=== PATIENT | male | born 1930 | race Caucasian/White ===

== ENCOUNTER 2016-06-26 08:43 | Emergency (ER) | payer OTHER ==
[~2016-06-26] VITALS: Ht 182.9 cm; Wt 83.9 kg
[~2016-06-26 08:43] MED LIST: AMIO200T2 PO; ASPI-482 PO; ASPI81TA9 PO; CALC-530 PO; CALC600T4 PO; CARB1TAB2 PO; CELE200C PO; CIPR500T94 PO; CITA10TA8 PO; DOFE125C PO; DOXA2TAB PO; FERR325T31 PO; GABA-586 PO; MAGN400T22 PO; MAGN400T3 PO; METO25TA4 PO; METR500T PO; NITR0.4T6 SL; PANT40TA5 PO; PARO20TA3 PO; PRIM250T PO; RIVA10TA PO; SIMV40TA3 PO; WARF1TAB7 PO; WARF5TAB PO
[2016-06-26] MEDS ORDERED: 0.9 % SODIUM CHLORIDE 10 ML DISP.SYRIN. IV PRN (09:00)
--- NOTE | 2016-06-26 09:13 | PHYS DOC ---
Past Medical History Past Medical History: CAD, Depression, GERD, Hypertension, [place], Other Additional Past Medical Histor: TREMORS, PACEMAKER Past Surgical History: Knee Replacement, Pacemaker, Tonsillectomy, Other Additional Past Surgical Histo: CARDIAC STENTS, CATARACT, HERNIA X2 Alcohol Use: None Drug Use: None Adult General Chief Complaint Chief Complaint: FLU SYMPTOM HPI HPI Patient is a 85 year old male who presents emergency room today with complaint of nonproductive cough, generalized weakness and exertional dyspnea that began all over week ago. Patient states that he saw his primary care doctor who prescribed Tamiflu for him for "flulike symptoms". He denies fevers or chills. He denies exposure to influenza. Patient has a history of a previous heart attack. He has 3 stents. He has a history of atrial fibrillation with episodes of CHF in the past. He denies chest pain, palpitations, orthopnea or PND. He does report exertional dyspnea and a nonproductive cough. Patient states he is taking all of his routine medications as prescribed. He denies being on an anticoagulant. He denies hospitalization, foreign travel or antibiotic use within the past 60 days. He denies epigastric/abdominal pain, nausea/vomiting or diarrhea. Patient reports he receives his primary and cardiac care at [facility]. Review of Systems Review of Systems Constitutional: Denies fever or chills [] Eyes: Denies change in visual acuity, redness, or eye pain [] HENT: Denies nasal congestion or sore throat [] Respiratory: Denies cough or shortness of breath [] Cardiovascular: No additional information not addressed in HPI [] GI: Denies abdominal pain, nausea, vomiting, bloody stools or diarrhea [] : Denies dysuria or hematuria [] Musculoskeletal: Denies back pain or joint pain [] Integument: Denies rash or skin lesions [] Neurologic: Denies headache, focal weakness or sensory changes [] Endocrine: Denies polyuria or polydipsia [] Current Medications Current Medications Current Medications Medications (Trade) Dose Ordered Sig/Dasha Start Time Stop Time Status Last Admin Dose Admin Sodium Chloride (Normal Saline Flush) 10 ml QSHIFT PRN 06/26/16 09:00 Allergies Allergies Allergies Coded Allergies Type Severity Reaction Last Updated Verified No Known Drug Allergies 03/04/15 No Physical Exam Physical Exam Constitutional: Patient is lying in a high semi-Fowlers position no acute distress. HENT: Normocephalic, atraumatic, bilateral external ears normal, oropharynx moist, no oral exudates, nose normal. Eyes: PERRLA, EOMI, conjunctiva normal, no discharge. [] Neck: Normal range of motion, no tenderness, supple, no stridor. There is no JVD. Cardiovascular:Heart rate 80 with irregular rhythm, no murmur. PMI was not displaced laterally. Patient does not have swollen lower extremities. Lungs & Thorax: Decreased lung sounds bilaterally with poor inspiratory effort. Patient shows no evidence of respiratory distress or respiratory fatigue. Oxygen saturation is 97% on room air. Abdomen: Bowel sounds normal, soft, no tenderness, no masses, no pulsatile masses. [] Skin: Warm, dry, no erythema, no rash. [] Back: No tenderness, no CVA tenderness. [] Extremities: No tenderness, no cyanosis, no clubbing, ROM intact, no edema. Neurologic: Alert and oriented X 3, normal motor function, normal sensory function, no focal deficits noted. [] Psychologic: Affect normal, judgement normal, mood normal. [] Current Patient Data Vital Signs Vital Signs Date Time Temp Pulse Resp B/P Pulse Ox O2 Delivery O2 Flow Rate FiO2 06/26/16 09:03 98.0 91 24 136/76 97 Room Air 98.0 Lab Values Laboratory Tests Test 06/26/16 09:15 White Blood Count 10.3x10^3/uL (4.0-11.0) Red Blood Count 3.78x10^6/uL (4.30-5.70) L Hemoglobin 12.9g/dL (13.0-17.5) L Hematocrit 38.1% (39.0-53.0) L Mean Corpuscular Volume 101fL (79-100) H Mean Corpuscular Hemoglobin 34pg (25-35) Mean Corpuscular Hemoglobin Concent 34g/dL (31-37) Red Cell Distribution Width 13.7% (11.5-14.5) Platelet Count 153x10^3/uL (140-400) Neutrophils (%) (Auto) 79% (31-73) H Lymphocytes (%) (Auto) 10% (24-48) L Monocytes (%) (Auto) 9% (0-9) Eosinophils (%) (Auto) 1% (0-3) Basophils (%) (Auto) 1% (0-3) Neutrophils # (Auto) 8.1x10^3uL (1.8-7.7) H Lymphocytes # (Auto) 1.0x10^3/uL (1.0-4.8) Monocytes # (Auto) 1.0x10^3/uL (0.0-1.1) Eosinophils # (Auto) 0.1x10^3/uL (0.0-0.7) Basophils # (Auto) 0.1x10^3/uL (0.0-0.2) Prothrombin Time 13.5SEC (11.7-14.0) Prothrombin Time INR 1.1 (0.8-1.1) Sodium Level 138mmol/L (136-145) Potassium Level 4.2mmol/L (3.5-5.1) Chloride Level 99mmol/L (98-107) Carbon Dioxide Level 30mmol/L (21-32) Anion Gap 9 (6-14) Blood Urea Nitrogen 16mg/dL (8-26) Creatinine 0.8mg/dL (0.7-1.3) Estimated GFR (Cockcroft-Gault) 92.3 Glucose Level 132mg/dL (70-99) H Calcium Level 8.7mg/dL (8.5-10.1) Magnesium Level 2.0mg/dL (1.8-2.4) Total Bilirubin 0.6mg/dL (0.2-1.0) Direct Bilirubin 0.1mg/dL (0.0-0.2) Aspartate Amino Transferase (AST) 18U/L (15-37) Alanine Aminotransferase (ALT) 16U/L (16-63) Alkaline Phosphatase 92U/L (46-116) Creatine Kinase 91U/L (39-308) Creatine Kinase MB (Mass) 0.8ng/mL (0.0-3.6) Creatine Kinase MB Relative Index 0.9% (0-4) Troponin I Quantitative < 0.017ng/mL (0.000-0.055) LH-Ona-H-Type Natriuretic Peptide 807pg/mL (0-449) H Total Protein 6.6g/dL (6.4-8.2) Albumin 3.4g/dL (3.4-5.0) Laboratory Tests 06/26/16 09:15 Laboratory Tests 06/26/16 09:15 EKG EKG Twelve-lead EKG performed at 857 shows an irregular rhythm with a rate of 79 bpm. QRS interval is 96 ms with a QT duration of 464 ms. This is not a sinus rhythm. Radiology/Procedures Radiology/Procedures [facility] [address] [place] [address] IMAGING REPORT Signed PATIENT: JOSE CARLOS SERRANO ACCOUNT: [id number] : 1930 LOCATION: ER AGE: 85 SEX: M EXAM STATUS: REG ER ORD. PHYSICIAN: NICOLAS RINCON REASON: exertional dyspnea, cough, hx of A Fib and CHF PROCEDURE: CHEST PA & LATERAL Exam performed: 2 views of the chest. Indication: exertional dyspnea, cough, hx of A Fib and CHF Date of Service:06/26/2016 11:00 AM . Comparison : 2 view chest from 02/17/15 Findings: PA and lateral radiographs of the chest reveal a normal cardiomediastinal contour. Bipolar pacemaker. The lungs are clear. No pleural fluid is seen. Spondylotic changes involving the thoracic spine. Impression: No acute cardiac pulmonary process seen. DICTATED and SIGNED BY: BRITTANY JACKSON MD DATE: 06/26/16 1021 CC: NICOLAS RINCON; JOSE CARLOS NAVAS MD ~ Course & Med Decision Making Course & Med Decision Making Pertinent Labs and Imaging studies reviewed. (See chart for details) [] Dragon Disclaimer Dragon Disclaimer This electronic medical record was generated, in whole or in part, using a voice recognition dictation system. Departure Departure Impression: Primary Impression: Cough Disposition: 01 HOME, SELF-CARE Condition: STABLE Referrals: JOSE CARLOS NAVAS MD (PCP) Patient Instructions: Cough, Adult, [id number] Additional Instructions: 1. Your chest x-ray here today shows no evidence of pneumonia. Your EKG and laboratory tests show no acute process with your heart or chemistry abnormalities. You're slightly anemic. 2. Continue taking your routine medications as prescribed. 3. You're safe to go home. 4. Call your primary care doctor Tuesday to schedule follow-up appointment for reevaluation at a later time in the week. Scripts Benzonatate 200 Mg Capsule1 Cap PO TID COUGH #21 CAP Prov:NICOLAS RINCON 06/26/16 NICOLAS RINCON Jun 26, 2016 09:13
[2016-06-26 09:23] LABS: BASO # 0.1 x10^3/uL (0.0-0.2); BASO % 1 % (0-3); EOS % 1 % (0-3); HEMATOCRIT 38.1 % (39.0-53.0); HEMOGLOBIN 12.9 g/dL (13.0-17.5); LYMPH % 10 % (24-48); MEAN CORPUSCULAR HEMOGLOBIN 34 pg (25-35); MEAN CORPUSCULAR HGB CONC 34 g/dL (31-37); MEAN CORPUSCULAR VOLUME 101 fL (79-100); MONO % 9 % (0-9); NEUT % 79 % (31-73); PLATELET COUNT 153 x10^3/uL (140-400); RED BLOOD COUNT 3.78 x10^6/uL (4.30-5.70); RED CELL DISTRIBUTION WIDTH 13.7 % (11.5-14.5); WHITE BLOOD COUNT 10.3 x10^3/uL (4.0-11.0)
[2016-06-26 09:34] LABS: CALCIUM 8.7 mg/dL (8.5-10.1); CREATININE 0.8 mg/dL (0.7-1.3); GFR 92.3; INR 1.1 (0.8-1.1); POTASSIUM 4.2 mmol/L (3.5-5.1); PROTHROMBIN TIME PATIENT 13.5 SEC (11.7-14.0)
[2016-06-26 09:40] LABS: ALBUMIN 3.4 g/dL (3.4-5.0); DIRECT BILIRUBIN 0.1 mg/dL (0.0-0.2); TOTAL BILIRUBIN 0.6 mg/dL (0.2-1.0); TOTAL PROTEIN 6.6 g/dL (6.4-8.2)
[2016-06-26 09:47] LABS: CKMB INDEX 0.9 % (0-4); CKMB MASS 0.8 ng/mL (0.0-3.6)
--- NOTE | 2016-06-26 10:24 | RAD ---
Exam performed: 2 views of the chest. Indication: exertional dyspnea, cough, hx of A Fib and CHF Date of Service:06/26/2016 11:00 AM . Comparison : 2 view chest from 02/17/15 Findings: PA and lateral radiographs of the chest reveal a normal cardiomediastinal contour. Bipolar pacemaker. The lungs are clear. No pleural fluid is seen. Spondylotic changes involving the thoracic spine. Impression: No acute cardiac pulmonary process seen.
[2016-06-26] MEDS ORDERED: BENZ200C39 PO (10:30)
[2016-06-26 10:49] VITALS: BP 41/76
--- NOTE | 2016-06-26 11:10 | EKG ---
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
== END 2016-06-26 10:50 | disposition home or self-care (01) ==
LOC: ER 08:43
DX: R05 Cough (principal); R53.1 Weakness; R06.00 Dyspnea, unspecified; K21.9 Gastro-esophageal reflux disease without esophagitis; I25.2 Old myocardial infarction; I25.10 Atherosclerotic heart disease of native coronary artery without angina pectoris; I11.0 Hypertensive heart disease with heart failure; I50.9 Heart failure, unspecified; I48.91 Unspecified atrial fibrillation; Z95.0 Presence of cardiac pacemaker; Z95.5 Presence of coronary angioplasty implant and graft; F32.9 Major depressive disorder, single episode, unspecified; Z90.89 Acquired absence of other organs
CPT/HCPCS: 36415; 71020; 80048; 80076; 82553; 83735; 83880; 84484; 85027; 85610; 93005; 99285-25

== ENCOUNTER → 2018-10-23 | Outpatient (CLI) | payer BC, OTHER ==
[~2018-10-23] MED LIST changes: -AMIO200T2 PO; +AMIO200T4 PO; +ASPI-612 PO; -ASPI81TA9 PO; +BENZ200C47 PO; +CYAN250012 PO; +FERR-36 PO; -FERR325T31 PO; +FINA5TAB4 PO; -GABA-586 PO; +GABA300C18 PO; +LOPE2TAB27 PO; +METO-239 PO; +NITR0.4T22 SL; -NITR0.4T6 SL; -PANT40TA5 PO; +PANT40TA77 PO; +SERT100T8 PO; +TAMS0.4C2 PO; +WARF-78 PO; +WARF1TAB69 PO; -WARF1TAB7 PO; -WARF5TAB PO
[2018-10-23 10:15] VITALS: BP 133/84
[2018-10-23 10:30] VITALS: BP 128/80
--- NOTE | 2018-10-23 10:35 | NUR ---
pt had MRI done and has PPM. the pacemaker rep here, set pacemaker to DOO setting w/rate of 95 for MRI. pt tolerated this well. rep was returning pacemaker to original settings at the end of MRI
--- NOTE | 2018-10-23 10:58 | RAD ---
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 Comparison: None Findings: There is no evidence of recent infarct or cytotoxic edema. Ventricular size is within normal limits. 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 There is minimal T2 and FLAIR hyperintense abnormality of the supratentorial periventricular white matter bilaterally. There is no significant midline shift, intraaxial mass effect, or focal abnormal extra-axial fluid collection. There is no significant hemosiderin deposition of the brain parenchyma. There is preservation of the major intracranial flow-voids at the skull base. The mastoid air cells are aerated. The cerebellar tonsils are normal in location. There is no significant abnormality of the pineal gland or pituitary gland. There is gutk-[id number] bilateral ethmoid air cell mucosal thickening, very minimal left maxillary sinus mucosal thickening. There has been lens surgery bilaterally. There is preserved marrow signal of the clivus. Impression: 1. There is no evidence of recent infarct or intracranial mass effect. 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 Minimal T2 and FLAIR hyperintense signal abnormality of the supratentorial periventricular white matter is more commonly due to chronic microvascular ischemic disease in a patient this age. Electronically signed by: Zachary Montana MD (10/23/2018 10:55 AM) [id number]
== END | disposition home or self-care (01) ==
LOC: MRI 09:39
PROVIDERS: ATTEND Psychiatry & Neurology Neurology with Special Qualifications in Child Neurology
DX: G25.0 Essential tremor (principal); G31.9 Degenerative disease of nervous system, unspecified; H46.8 Other optic neuritis; G44.209 Tension-type headache, unspecified, not intractable; R26.9 Unspecified abnormalities of gait and mobility
CPT/HCPCS: 70551

== ENCOUNTER → 2019-05-02 | Outpatient (CLI) | payer BC ==
[2018-10-23 10:30] VITALS: BP 128/80
[~2019-05-02] MED LIST changes: -MAGN400T3 PO; +MAGN400T5 PO; +SIMV40TA18 PO; -SIMV40TA3 PO
--- NOTE | 2019-05-02 13:03 | RAD ---
EXAM: Head CT without contrast. HISTORY: Unsteady gait. Headache. TECHNIQUE: Computed tomographic images of the head were obtained without contrast. *One or more of the following individualized dose reduction techniques were utilized for this examination: 1. Automated exposure control. 2. Adjustment of the mA and/or kV according to patient size. 3. Use of iterative reconstruction technique. COMPARISON: MRI dated 10/23/2018. FINDINGS: There is no acute or subacute extra-axial or intraparenchymal hemorrhage. There is no mass effect or midline shift. There is no hydrocephalus. There are areas of decreased attenuation within the cerebral white matter, nonspecific and likely related to chronic small vessel disease. There is cerebral and cerebellar atrophy. The visualized portions of the orbits, paranasal sinuses and mastoid air cells are unremarkable. No suspicious calvarial lesion is seen. IMPRESSION: 1. No acute intracranial finding. Note is made that MRI is more sensitive for acute infarction. 2. Decreased attenuation within the cerebral white matter, most commonly due to chronic small vessel disease. 3. Cerebral and cerebellar volume loss. Electronically signed by: Caitie Lion MD (05/02/2019 1:00 PM) [place] [id number]
== END | disposition home or self-care (01) ==
LOC: CT 12:44
PROVIDERS: ATTEND Family Medicine
DX: G31.89 Other specified degenerative diseases of nervous system (principal)
CPT/HCPCS: 70450

== ENCOUNTER → 2020-05-27 | Outpatient (CLI) | payer BC ==
[2018-10-23 10:30] VITALS: BP 128/80
[~2020-05-27] MED LIST changes: -AMIO200T4 PO; +AMIO200T6 PO; -ASPI-612 PO; +ASPI-886 PO; -CALC600T4 PO; +CALC600T6 PO; +SERT-268 PO; -SERT100T8 PO; -WARF-78 PO; +WARF5TAB2 PO
--- NOTE | 2020-05-27 15:50 | KCIC ---
EXAM: XR CHEST 2V 05/27/2020 10:20 AM CLINICAL INDICATION: Cough, shortness of breath COMPARISON: Chest radiograph 04/07/2028 TECHNIQUE: PA and lateral views of the chest FINDINGS: There is a dual-lead pacemaker in unchanged position. The cardiac silhouette is stable. Th ere is a 5 mm pulmonary nodule in the right apex. Calcified granuloma in the left lung base. Chronic interstitial thickening in the lung bases is unchanged. There is right greater than left apical pleur al parenchymal scarring, also unchanged. No new consolidation, pleural effusion, or pneumothorax. The re is thoracic degenerative disc disease. An inferior vena cava filter is noted. IMPRESSION: 1. 5 mm pulmonary nodule in the right apex, nonspecific. CT could be obtained to further evaluate. 2. Stable chronic interstitial changes in the lungs. Electronically signed by: Evelin Falcon MD (05/27/2020 3:47 PM) [id number]
== END ==
LOC: KCIC 10:17
PROVIDERS: ATTEND Family Medicine
DX: R91.1 Solitary pulmonary nodule (principal); Z20.822 Contact with and (suspected) exposure to COVID-19
CPT/HCPCS: 71046

== ENCOUNTER → 2021-06-02 | Emergency (ER) | payer BC ==
[2018-10-23 10:30] VITALS: BP 128/80
[~2021-06-02] MED LIST changes: +AMIO200T53 PO; -AMIO200T6 PO; -CALC600T6 PO; +CALC600T60 PO; +CARB-183 PO; -CARB1TAB2 PO; +MAGN400T48 PO; -MAGN400T5 PO
== END | disposition left against medical advice (07) ==
LOC: ER 13:19
DX: K92.89 Other specified diseases of the digestive system (principal); Z53.21 Procedure and treatment not carried out due to patient leaving prior to being seen by health care provider